=== PATIENT | female | born 1990 | race Caucasian/White ===

== ENCOUNTER 2020-05-12 15:28 | Emergency (ER) | payer OTHER ==
[~2020-05-12] VITALS: Ht 157.5 cm; Wt 66.4 kg
[2020-05-12 15:30] VITALS: BP 148/85
[2020-05-12] MEDS ORDERED: PRED20TA PO (15:44)
[2020-05-12] MEDS ORDERED: DEXAMETHASONE 4 MG TABLET PO ONE (15:45)
[2020-05-12] MEDS ORDERED: diphenhydrAMINE HCL 25 MG CAPSULE PO ONE (15:45)
--- NOTE | 2020-05-12 15:45 | PHYS DOC ---
Past History Additional Past Medical Histor: Autoimmune disorder, seborrheic dermatitis Past Surgical History: No Surgical History Smoking: Non-smoker Alcohol Use: Rarely Drug Use: None General Adult EDM: Chief Complaint: ALLERGIC REACTION HPI: HPI: 29-year-old female presents with report of pruritic rash to her arms and neck that started after lunch. Patient denies known allergen exposure. Denies any shortness of breath or tongue swelling. Patient does report taking a "diet detox medication approximately 3 days ago "for which she has taken in the past and had no issue. Patient also reports change in laundry detergent approximately 3 weeks ago Review of Systems: Review of Systems: Constitutional: Denies fever or chills Eyes: Denies redness or eye pain HENT: Denies nasal congestion or sore throat Respiratory: Denies cough or shortness of breath Cardiovascular: Denies chest pain or palpitations GI: Denies abdominal pain, nausea, or vomiting : Denies dysuria or hematuria Musculoskeletal: Denies back pain or joint pain Integument: Reports pruritic rash Neurologic: Denies headache, focal weakness or sensory changes Complete systems were reviewed and found to be within normal limits, except as documented in this note. Current Medications: Current Meds: Current Medications Medications (Trade) Dose Ordered Sig/Klaus Start Time Stop Time Status Last Admin Dose Admin Dexamethasone (Decadron) 10 mg 1X ONCE 05/12/20 15:45 05/12/20 15:46 UNV Diphenhydramine HCl (Benadryl) 25 mg 1X ONCE 05/12/20 15:45 05/12/20 15:46 UNV Allergies: Allergies: Allergies Coded Allergies Type Severity Reaction Last Updated Verified No Known Drug Allergies 05/12/20 No Physical Exam: PE: Constitutional: Well developed, well nourished, no acute distress, non-toxic appearance HENT: Normocephalic, atraumatic Eyes: PERRL, EOMI, conjunctiva normal, no discharge Neck: Normal range of motion, no tenderness, supple Lungs & Thorax: No respiratory distress, equal chest rise and fall Abdomen: Soft, no tenderness Skin: Warm, dry, small rash noted to back of neck Extremities: No tenderness, ROM intact, no edema Neurologic: Alert and oriented X 3, no focal deficits noted Psychologic: Affect normal, judgment normal EKG: EKG: [] Radiology/Procedures: Radiology/Procedures: [] Course & Med Decision Making: Course & Med Decision Making Patient presents with pruritic rash without signs of airway involvement. Vital signs stable. Empiric steroid and Benadryl initiated. Patient stable for discharge with outpatient follow-up with PCP. Discussed findings and plan with patient, who acknowledges understanding and agreement. Devin Disclaimer: Devin Disclaimer: This electronic medical record was generated, in whole or in part, using a voice recognition dictation system. Departure Departure: Impression: Primary Impression: Pruritic rash Disposition: 01 DC HOME SELF CARE/HOMELESS Condition: STABLE Referrals: THU LOPEZ DO (PCP) Patient Instructions: Hives, [id number], Rash, [id number] Additional Instructions: Use over the counter Benadryl as needed for rash. Scripts Prednisone (PREDNISONE) 20 Mg Tablet 2 TAB PO DAILY for Rash, #8 TAB Start this prescription tomorrow, 05/13/20 Prov: ASHISH YEAGER DO 05/12/20 ASHISH YEAGER DO May 12, 2020 15:45
== END 2020-05-12 15:54 | disposition home or self-care (01) ==
LOC: ER 15:28
DX: L29.9 Pruritus, unspecified (principal); R21 Rash and other nonspecific skin eruption
CPT/HCPCS: 99283; J8540; Q0163